=== PATIENT | male | born 1995 | race Caucasian/White ===

== ENCOUNTER 2018-08-04 11:49 | Emergency (ER) | payer SELFPAY ==
[2018-08-04 12:19] VITALS: BP 134/81
--- NOTE | 2018-08-04 12:42 | ED Physician Documentation ---
General Adult - HISTORIAN Historian: patient - HPI Stated Complaint: sore feet Chief Complaint: General Adult Additional Information: Patient presents to ED with complaints of sore feet. Patient reports athlete's foot and ingrown toe nail. He states both feet are sore. Patient states he is homeless and has no money/food or a place to stay. He has a car. He was at the [facility] but was kicked out of there due to poor behavior. Patient states he is hungry. Onset: days ago (14) Timing: still present Severity: mild - ROS CONST: no problems EYES/ENT: none CVS/RESP: none GI/: none MS/SKIN/LYMPH: none - PAST HX Past History: none Other History: none Surgeries/Procedures: none Allergies/Adverse Reactions: Allergies Allergy/AdvReac Type Severity Reaction Status Date / Time No Known Allergies Allergy Verified 08/04/18 12:20 Home Medications: Ambulatory Orders Medication Instructions Recorded Unobtainable 08/04/18 - SOCIAL HX Smoking History: non-smoker Alcohol Use: none Drug Use: none - FAMILY HX Family History: No - VITAL SIGNS Vital Signs: Vital Signs Temp Pulse Resp BP Pulse Ox 98.7 F 94 H 18 134/81 97 08/04/18 11:50 08/04/18 11:50 08/04/18 11:50 08/04/18 11:50 08/04/18 11:50 - REVIEWED ASSESSMENTS Nursing Assessment Reviewed: Yes Vitals Reviewed: Yes General Adult Physical Exam - PHYSICAL EXAM GENERAL APPEARANCE: no distress EENT: HERACLIO NECK: supple RESPIRATORY: no resp distress, chest non-tender, breath sounds normal CVS: reg rate & rhythm, heart sounds normal ABDOMEN: soft, normal bowel sounds BACK: normal inspection SKIN: warm/dry EXTREMITIES: non-tender NEURO: oriented X3, motor nml, mood/affect nml Discharge Clincal Impression: Homeless single person Athletes foot Qualifiers: Laterality: bilateral Qualified Code(s): B35.3 - Tinea pedis Referrals: Primary Doctor,No [Primary Care Provider] - 2 Days Additional Instructions: 1. Soak feet in warm water with capful of bleach daily 2. Apply Tinactin or Micatin twice daily 3. Follow up with PCP as needed 4. Return to the ER for new or worsening symptoms. Condition: Stable Disposition: 01 HOME, SELF-CARE Decision to Admit: NO Date of Decison to Admit: 08/04/18 Decision Time: 12:52
== END 2018-08-04 13:07 | disposition home or self-care (01) ==
LOC: ED 11:49
DX: B35.3 Tinea pedis (principal); Z59.0 Homelessness
CPT/HCPCS: 99282

== ENCOUNTER 2018-08-05 01:20 | Emergency (ER) | payer SELFPAY ==
--- NOTE | 2018-08-05 02:05 | ED Physician Documentation ---
General Adult - VITAL SIGNS Vital Signs: Vital Signs Temp Pulse Resp BP Pulse Ox 98.4 F 76 17 134/75 97 08/05/18 05:30 08/05/18 05:30 08/05/18 05:30 08/05/18 05:30 08/05/18 05:30 <Alexandra Durant - Last Filed: 08/05/18 11:29> - HISTORIAN Historian: patient - HPI Stated Complaint: "I'm about to have a mental break" Chief Complaint: General Adult Additional Information: Patient presents to ED stating, "I'm about to have a mental break". Patient was seen in this ED earlier today with complaints of sore feet secondary to athlete's foot. Patient reports being homeless the past 2 months and driving in his car to various places. He reports his family is in [place] and is part of a strict [employer] community. He was kicked out of the community because he bought a car. He has a history of anxiety, depression and ADHD. He denies any suicidal/homicidal thoughts or ideation. He was staying at the [facility] however was kicked out due to the person he was with was drinking alcohol. Onset: days ago (2) Timing: still present Severity: moderate - ROS CONST: no problems EYES/ENT: none CVS/RESP: none GI/: none MS/SKIN/LYMPH: none NEURO/PSYCH: denies: headache - PAST HX Past History: other (anxiety, depression) Other History: none Surgeries/Procedures: none - SOCIAL HX Smoking History: non-smoker Alcohol Use: none Drug Use: none - FAMILY HX Family History: No - VITAL SIGNS Vital Signs: Vital Signs Temp Pulse Resp BP Pulse Ox 134/81 08/04/18 13:07 - REVIEWED ASSESSMENTS Nursing Assessment Reviewed: Yes Vitals Reviewed: Yes <Loren Abrams - Last Filed: 08/06/18 08:08> - PAST HX Allergies/Adverse Reactions: Allergies Allergy/AdvReac Type Severity Reaction Status Date / Time No Known Allergies Allergy Verified 08/05/18 02:56 Home Medications: Ambulatory Orders Medication Instructions Recorded Divalproex Sodium [Depakote] 1.5 tab DAILY 08/05/18 Fluticasone Propionate [Flonase] 1 spray INH DAILY 08/05/18 Ketoconazole [Nizoral] 1 applic TOP DAILY 08/05/18 Olanzapine [Zyprexa] 15 mg PO 0600 08/05/18 Pantoprazole Sodium [Protonix] 40 mg PO DAILY 08/05/18 Venlafaxine HCl [Effexor Xr] 75 mg PO DAILY 08/05/18 General Adult Physical Exam - PHYSICAL EXAM GENERAL APPEARANCE: no distress EENT: HERACLIO NECK: supple RESPIRATORY: no resp distress, breath sounds normal CVS: reg rate & rhythm, heart sounds normal ABDOMEN: soft, normal bowel sounds SKIN: warm/dry EXTREMITIES: non-tender, no edema NEURO: oriented X3, CN's nml as tested, motor nml <Loren Abrams - Last Filed: 08/06/18 08:08> Discharge Decision to Admit: NO Decision Time: 07:22 <Alexandra Durant - Last Filed: 08/05/18 11:29> <Loren Abrams - Last Filed: 08/06/18 08:08> Clincal Impression: Homeless single person Referrals: Primary Doctor,No [Primary Care Provider] - 2 Days Additional Instructions: Take your medications as directed List of churches given to patient per his request to get financial help Follow up with primary care provider next week. Condition: Good Disposition: 01 HOME, SELF-CARE
[2018-08-05 07:25] VITALS: BP 122/71
== END 2018-08-05 07:23 | disposition home or self-care (01) ==
LOC: ED 01:20
DX: Z04.89 Encounter for examination and observation for other specified reasons (principal); Z59.0 Homelessness
CPT/HCPCS: 99281